=== PATIENT | female | born 1945 | race Caucasian/White ===

== ENCOUNTER → 2023-03-03 14:12 | Outpatient (BNVA) | payer MEDICARE, OTHER, SELFPAY | PROVIDERS: PCP Family Medicine; Referring Provider Family Medicine; Visit Provider Internal Medicine | DX: E03.9 Hypothyroidism, unspecified (principal); Q18.8 Other specified congenital malformations of face and neck; Z79.890 Hormone replacement therapy | CPT/HCPCS: 99204 ==

== ENCOUNTER → 2023-04-29 09:14 | Outpatient (BNVA) | payer MEDICARE, OTHER, SELFPAY | PROVIDERS: PCP Family Medicine; Visit Provider Internal Medicine | DX: E03.9 Hypothyroidism, unspecified (principal); Q18.8 Other specified congenital malformations of face and neck; M81.0 Age-related osteoporosis without current pathological fracture; Z79.890 Hormone replacement therapy | CPT/HCPCS: 99214 ==

== ENCOUNTER → 2023-08-20 10:51 | Outpatient (BNVA) | payer MEDICARE, OTHER, SELFPAY | PROVIDERS: PCP Family Medicine; Visit Provider Internal Medicine | DX: E03.9 Hypothyroidism, unspecified (principal); Q18.8 Other specified congenital malformations of face and neck; M81.0 Age-related osteoporosis without current pathological fracture; Z79.890 Hormone replacement therapy | CPT/HCPCS: 99214 ==

== ENCOUNTER → 2024-02-28 09:05 | Outpatient (BNVA) | payer MEDICARE, OTHER, SELFPAY | PROVIDERS: PCP Family Medicine; Visit Provider Internal Medicine | DX: E03.9 Hypothyroidism, unspecified (principal); M81.0 Age-related osteoporosis without current pathological fracture; Q18.8 Other specified congenital malformations of face and neck; I95.1 Orthostatic hypotension; Z79.890 Hormone replacement therapy | CPT/HCPCS: 36415; 80053; 82306; 84439; 84443; 99214 ==

== ENCOUNTER → 2024-10-17 09:44 | Outpatient (BNVA) | payer MEDICARE, OTHER, SELFPAY | PROVIDERS: PCP Family Medicine; Visit Provider Internal Medicine | DX: E03.9 Hypothyroidism, unspecified (principal); I95.1 Orthostatic hypotension; M81.0 Age-related osteoporosis without current pathological fracture; Q18.8 Other specified congenital malformations of face and neck | CPT/HCPCS: 99214 ==

== ENCOUNTER → 2025-04-17 10:21 | Outpatient (BNVA) | payer MEDICARE, OTHER, SELFPAY | PROVIDERS: PCP Family Medicine; Visit Provider Internal Medicine | DX: E03.9 Hypothyroidism, unspecified (principal); R46.89 Other symptoms and signs involving appearance and behavior; M81.0 Age-related osteoporosis without current pathological fracture; I95.1 Orthostatic hypotension | CPT/HCPCS: 99214 ==